=== PATIENT | male | born 1955 | race Caucasian/White ===

== ENCOUNTER 2019-02-02 08:16 | Emergency (ER) | payer BC ==
[~2019-02-02] VITALS: Ht 182.9 cm; Wt 99.3 kg
[~2019-02-02 08:16] MED LIST: ACTOS15 MG PO; FENOFIBRATE160 MG PO; GLIPIZIDE10 MG PO; GUAIATUSSIN AC118 ML PO; LOSARTAN-HCTZ1 EAC2 PO; METFORMIN HCL500 M1 PO; NAPROSYN500 MG PO
[2019-02-02] MEDS ORDERED: ATORVASTATIN CA40 MG PO (08:39)
== END 2019-02-02 11:25 | disposition short-term general hospital (02) ==
LOC: ED 08:16
DX: I72.3 Aneurysm of iliac artery (principal); I10 Essential (primary) hypertension; E11.9 Type 2 diabetes mellitus without complications; Z79.899 Other long term (current) drug therapy; Z79.84 Long term (current) use of oral hypoglycemic drugs
CPT/HCPCS: 74177; 80053; 81001; 85025; 99285-25; J1170; J1885; J2405; J2543; J7030; J7060; Q9967

== ENCOUNTER 2019-02-13 09:39 | Emergency (ER) | payer BC ==
[~2019-02-13] VITALS: Ht 182.9 cm; Wt 97.5 kg
[~2019-02-13 09:39] MED LIST changes: +ATORVASTATIN CA40 MG PO
--- OUTSIDE RECORDS SUMMARY | 2019-02-13 09:44 | XMS ---
PreManage Notification: CHRISTI VERA [facility] Worker Events No recent Security Events currently on file CRITERIA MET - [facility] - 2 Visits in 30 Days CARE PROVIDERS UGO RIVAS [facility] Current PHONE: Unknown Ugo Rivas Treatment Current [place] PHONE: Unknown Rafi has no Care Guidelines for this patient. Kush [facility] (12 MO.) [facility] [address] [place] [address] TOTAL 3 NOTE: Visits indicate total known visits. ED/UCC VISIT TRACKING (12 MO.) 02/13/2019 09:41 [facility] [place] TYPE: Emergency COMPLAINT: - BACK PAIN/NO INJURY [facility]2019 12[facility] DIAGNOSES: - Abdominal Pain - 63 yo male with leaking or mycotic L iliac aneurysm. Got ABX. Hemo dynamically stable. Let Dr. Brown know when arrives - Aneurysm of iliac artery - Referral 02/02/2019 08:16 [facility] [place] TYPE: Emergency COMPLAINT: - SIDE PAIN NON INJURY DIAGNOSES: - Aneurysm of iliac artery - [facility] (current) use of oral hypoglycemic drugs - Other exterminator helper (current) drug therapy - Essential (primary) hypertension - Type 2 diabetes mellitus without complications - Left lower quadrant pain INPATIENT VISIT TRACKING (12 MO.) 02/02/2019 12:36 [facility] DIAGNOSES: - Hyperkalemia - Aneurysm of iliac artery - Elevated white blood cell count, unspecified - Disorder of kidney and ureter, unspecified - Hypo-osmolality and hyponatremia [id number]
[2019-02-13] MEDS ORDERED: CLOPIDOGREL75 MG PO (10:04)
[2019-02-13] MEDS ORDERED: HUMALOG100 UNIT/2 SUB-Q (10:05)
[2019-02-13] MEDS ORDERED: LANTUS SOL100 UNIT/1 SUB-Q (10:06)
[2019-02-13] MEDS ORDERED: LOSARTAN POTAS100 MG PO (10:08)
[2019-02-13] MEDS ORDERED: CARVEDILOL12.5 MG PO (10:08)
[2019-02-13] MEDS ORDERED: AMLODIPINE BESYL5 MG PO (10:08)
[2019-02-13] MEDS ORDERED: METHOCARBAMOL500 MG PO (10:09)
[2019-02-13] MEDS ORDERED: CYCLOBENZAPRINE10 MG PO (13:23)
== END 2019-02-13 17:49 | disposition short-term general hospital (02) ==
LOC: ED 09:39
DX: N17.9 Acute kidney failure, unspecified (principal); N13.30 Unspecified hydronephrosis; D72.829 Elevated white blood cell count, unspecified; E11.9 Type 2 diabetes mellitus without complications; I10 Essential (primary) hypertension; Z88.1 Allergy status to other antibiotic agents; Z79.4 Long term (current) use of insulin; Z79.899 Other long term (current) drug therapy
CPT/HCPCS: 36415; 51702; 71045; 74176; 80048; 80053; 81001; 83605; 85025; 93971; 99284-25; J0692; J1815; J7030; J7060

== ENCOUNTER 2019-03-03 21:12 | Emergency (ER) | payer BC ==
[~2019-03-03] VITALS: Ht 182.9 cm; Wt 111.5 kg
[~2019-03-03 21:12] MED LIST changes: +AMLODIPINE BESYL5 MG PO; +CARVEDILOL12.5 MG PO; +CLOPIDOGREL75 MG PO; +CYCLOBENZAPRINE10 MG PO; +HUMALOG100 UNIT/2 SUB-Q; +LANTUS SOL100 UNIT/1 SUB-Q; +LOSARTAN POTAS100 MG PO; +METHOCARBAMOL500 MG PO
--- OUTSIDE RECORDS SUMMARY | 2019-03-03 21:14 | XMS ---
PreManage Notification: CHRISTI VERA Security Associate Professor Of Radiology Events No recent Security Events currently on file CRITERIA MET - [facility] - 2 Visits in 30 Days CARE PROVIDERS UGO RIVAS [facility] Current PHONE: Unknown Ugo Rivas Treatment Current [place] PHONE: Unknown Rafi has no Care Guidelines for this patient. Kush VISIT COUNT (12 MO.) [address] [facility] [address] [place] [address] TOTAL 4 NOTE: Visits indicate total known visits. ED/UCC VISIT TRACKING (12 MO.) 03/03/2019 21:12 [facility] [place] TYPE: Emergency COMPLAINT: - MEDICATION CONCERN 02/13/2019 09:41 [facility] [place] TYPE: Emergency DIAGNOSES: - Low back pain - Type 2 diabetes mellitus without complications - Allergy status to other antibiotic agents status - Unspecified hydronephrosis - Acute kidney failure, unspecified - [facility] (current) use of insulin - Essential (primary) hypertension - Elevated white blood cell count, unspecified - Other terminal worker (current) drug therapy 02/02/2019 12:36 [facility] [place] TYPE: Emergency DIAGNOSES: - Abdominal Pain - 63 yo male with leaking or mycotic L iliac aneurysm. Got ABX. Hemo dynamically stable. Let Dr. 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 Sepsis, unspecified organism 00367. Other secondary hypertension 49112. Chronic kidney disease, unspecified [address]9050. Aneurysm of iliac artery 99642. Type 2 diabetes mellitus with hyperglycemia 02/13/2019 19:30 [facility] [place] TYPE: General Medicine DIAGNOSES: - Hyponatremia - Sepsis, unspecified organism 02/02/2019 12:36 [facility] [place] TYPE: General Medicine DIAGNOSES: - Hyperkalemia - Aneurysm of iliac artery - Elevated white blood cell count, unspecified - Disorder of kidney and ureter, unspecified - Hypo-osmolality and hyponatremia [id number]
[2019-03-03] MEDS ORDERED: ASPIR 8181 MG PO (21:25)
[2019-03-03] MEDS ORDERED: DULCOLAX10 MG PR (21:28)
[2019-03-03] MEDS ORDERED: DAPTOMYCIN500 MG IV (21:39)
[2019-03-03] MEDS ORDERED: GLUCAGON HCL1 MG IV/IM (21:40)
[2019-03-03] MEDS ORDERED: GLUCOSE4 GM PO (21:41)
[2019-03-03] MEDS ORDERED: HEPARIN SO5000 UNIT3 INJ (21:42)
[2019-03-03] MEDS ORDERED: HYDRALAZIN20 MG/1 ML IV/IM (21:44)
[2019-03-03] MEDS ORDERED: HYDROCHLOROTH12.5 M1 PO (21:45)
[2019-03-03] MEDS ORDERED: DILAUDID1 MG/ML PO (21:46)
[2019-03-03] MEDS ORDERED: LABETALOL IV (21:48)
[2019-03-03] MEDS ORDERED: GLUCOPHAGE500 MG PO (21:49)
[2019-03-03] MEDS ORDERED: MIRALAX17 GM PO ×2 (21:51→21:52)
[2019-03-03] MEDS ORDERED: ROXICODONE15 MG PO (21:51)
[2019-03-03] MEDS ORDERED: PROCHLORPER5 MG/1 ML INJ (21:54)
[2019-03-03] MEDS ORDERED: SENOKOT8.6 MG PO (21:54)
[2019-03-03] MEDS ORDERED: FLOMAX0.4 MG PO (21:55)
[2019-03-04] MEDS ORDERED: GLUCOPHAGE500 MG PO (01:50)
[2019-03-04] MEDS ORDERED: ASPIR 8181 MG PO (01:50)
[2019-03-04] MEDS ORDERED: CARVEDILOL12.5 MG PO (01:50)
[2019-03-04] MEDS ORDERED: HYDROCHLOROTH12.5 M1 PO (01:50)
[2019-03-04] MEDS ORDERED: LOSARTAN POTAS100 MG PO (01:50)
[2019-03-04] MEDS ORDERED: AMLODIPINE BESYL5 MG PO (01:50)
[2019-03-04] MEDS ORDERED: ATORVASTATIN CA40 MG PO (01:50)
== END 2019-03-04 00:41 | disposition home or self-care (01) ==
LOC: ED 21:12
DX: T81.40XA Infection following a procedure, unspecified, initial encounter (principal); Z76.0 Encounter for issue of repeat prescription; E11.9 Type 2 diabetes mellitus without complications; I10 Essential (primary) hypertension; Z79.4 Long term (current) use of insulin; Z79.899 Other long term (current) drug therapy
CPT/HCPCS: 99282

== ENCOUNTER 2024-05-01 09:57 | Day surgery (SDC) | payer OTHER, MEDICARE ==
[~2024-05-01] VITALS: Ht 182.9 cm; Wt 96.3 kg
[~2024-05-01 09:57] MED LIST changes: +ASPIR 8181 MG PO; +CEFAZOLIN SODIUM 2 GM/20 ML SYR IV SCH; +DAPTOMYCIN500 MG IV; +DILAUDID1 MG/ML PO; +DULCOLAX10 MG PR; +FLOMAX0.4 MG PO; +FUROSEMIDE80 MG PO; +GLUCAGON HCL1 MG IV/IM; +GLUCOPHAGE500 MG PO; +GLUCOSE4 GM PO; +HEPARIN SO5000 UNIT3 INJ; +HYDRALAZIN20 MG/1 ML IV/IM; +HYDROCHLOROTH12.5 M1 PO; +HYDROmorphone HCL 1 MG/ML SYR IV PRN; +IBLOOD GLUCOSE TEST STRIP 1 EA TEST VI PRN; +LABETALOL IV; +LACTATED RINGER'S 1,000 ML IV SCH; +LIDOCAINE HCL 1% 5 ML SDV INJ ONE; +MIRALAX17 GM PO; +OXYCODONE/APAP 5/325 TAB PO PRN; +PROCHLORPER5 MG/1 ML INJ; +RENA-VITE TABL0.8 MG PO; +RENVELA800 MG PO; +ROXICODONE15 MG PO; +SEMGLEE (Y100 UNIT/2 SQ; +SENOKOT8.6 MG PO; +ondansetron HCL 4 MG/2 ML VIAL IV PRN
[2024-05-01 10:18] VITALS: BP 159/80
[2024-05-01 11:00] LABS: BASOPHILS 1.3 % (0-2); EOSINOPHILS 4.9 % (0-6); HEMATOCRIT 29.3 % (35.0-50.0); HEMOGLOBIN 9.8 g/dL (12.0-18.0); LYMPHOCYTES 19.4 % (24-44); MCH 33.8 (27-36); MCHC 33.5 g/dl (30-36); MCV 100.8 fl (81-99); MONOCYTES 17.3 % (0-12); NEUTROPHILS 57.1 % (39-80); PLATELET COUNT 139 K/uL (140-440); RBC 2.91 M/ul (4.3-5.7)
[2024-05-01 11:14] LABS: ALBUMIN 3.4 g/dL (3.4-5.0); ALBUMIN/GLOBULIN RATIO 0.94 (1.1-2.4); ANION GAP 10.3 (7-21); BILIRUBIN, TOTAL 0.8 ng/dL (0.2-1.0); BUN/CREATININE RATIO 6.95 (6.0-28.6); CALCIUM 8.4 mg/dL (8.5-10.1); CREATININE, SERUM 3.88 mg/dL (0.70-1.30); POTASSIUM 4.3 mmol/L (3.5-5.1)
[2024-05-01] MEDS ORDERED: fentaNYL citrate 100 MCG/2 ML VIAL ONE (12:02)
[2024-05-01] MEDS ORDERED: LIDOCAINE HCL 2% 5 ML SDV ONE (12:02)
[2024-05-01] MEDS ORDERED: propofoL 200 MG/20 ML VIAL ONE (12:02)
[2024-05-01] MEDS ORDERED: DEXAMETHASONE SOD PHOS 4 MG/ML VIAL ONE (12:02)
[2024-05-01] MEDS ORDERED: ondansetron HCL 4 MG/2 ML VIAL ONE (12:02)
[2024-05-01] MEDS ORDERED: BUPIVACAINE HCL 0.25% 50 ML MDV ONE (12:47)
[2024-05-01] MEDS ORDERED: ePHEDrine sulfate 50 MG/ML AMP ONE (13:38)
[2024-05-01] MEDS ORDERED: ACETAMINOPHEN 1,000 MG/100 ML VIAL ONE (13:40)
[2024-05-01 14:59] VITALS: BP 128/57
--- NOTE | 2024-05-01 15:01 | NUR ---
LE 8986 PATIENT INTO ROOM 2. REPORT RECIEVED FROM ALEJANDRO LEAL. PATIENT ALERT AND ORIENTED. BREATHING EQUAL AND UNLABORED. OXYGENT SATURATIONS ABOVE 90% ON ROOM AIR. SURGICAL DRESSING CLEAN, DRY AND INTACT. IVF INFUSING. SCD'S ON. PATIENT GIVEN 300 MLS OF WATER. CALL LIGHT WITHIN REACH. NO FUTHER NEEDS. NO QUESTIONS AT THIS TIME. PATIENT GIVEN PUDDING.
--- NOTE | 2024-05-01 15:39 | NUR ---
05/01/24 1539 Milagros Alfonso 1429- PT PRESENTS TO PACU, SEMI MEEKS POSITION, OPA REMOVED ON THE WAY THROUGH THE DOOR AND O2 REMOVED. PT REACTIVE TO STIMULUS. LR HANGING TO IV IN RW. ABD SOFT, NON DISTENDED. DRESSINGS IN PLACE WITH JOCK STRAP IN PLACE, CDI. ALL MONITORS IN PLACE. 1440- PT REPORTS SOME BURNING PAIN AND SURGICAL SITE, 5/10. TOLERABLE AT THIS TIME. DENIES NAUSEA. 1455- PT TAKEN BACK TO DAY SURGERY, DROWSY BUT AWAKE AND ANSWERING QUESTIONS. NO SIGNS OF DISTRESS. IV REMAINS IN PLACE. REPORT TO CARY ALLEN AT BEDSIDE, DRESSING ASSESSED TOGETHER.
[2024-05-01 16:15] VITALS: BP 150/72
--- NOTE | 2024-05-01 16:24 | NUR ---
LE 1533 DR. SEPULVEDA CALLED WITH AN UPDATE ON PATIENT. PATIENT UNABLE TO URINATE DUE TO PATIENT DIALYSIS. DR. SEPULVEDA CLEARED PATIENT TO LEAVE WITHOUT URINATING. PATIENT AND HIMSELF UNDERSTANDABLE TO CALL IF ANY CONCERNS. NO QUESTIONS AT THIS TIME. PATIENT HAS MET DISCHARGE CRITERIA IV D/C'D WNL. PATIENT GIVEN DISCHARGE INSTRUCTIONS. PATIENT WHEELED OUT OF FACILITY. NO FUTHER NEEDS.
== END 2024-05-01 16:13 | disposition home or self-care (01) ==
LOC: DS 09:57
PROVIDERS: Nurse Anesthetist, Certified Registered; ATTEND Urology
PROC: 0VB60ZZ Excision of Right Tunica Vaginalis, Open Approach (ICD-10-PCS; principal; 2024-05-01 12:20)
DX: N43.3 Hydrocele, unspecified (principal); E11.22 Type 2 diabetes mellitus with diabetic chronic kidney disease; I12.0 Hypertensive chronic kidney disease with stage 5 chronic kidney disease or end stage renal disease; N18.6 End stage renal disease; Z99.2 Dependence on renal dialysis; E11.51 Type 2 diabetes mellitus with diabetic peripheral angiopathy without gangrene; Z79.899 Other long term (current) drug therapy; Z88.8 Allergy status to other drugs, medicaments and biological substances
CPT/HCPCS: 36415; 80048; 80053; 85025; J0131; J0690; J1100; J2001; J2405; J2704; J3010; J7121

== ENCOUNTER 2025-02-01 01:52 | Emergency (ER) | payer MEDICARE, OTHER ==
[~2025-02-01] VITALS: Ht 182.9 cm; Wt 92.5 kg
[~2025-02-01 01:52] MED LIST changes: -CEFAZOLIN SODIUM 2 GM/20 ML SYR IV SCH; -HYDROmorphone HCL 1 MG/ML SYR IV PRN; -IBLOOD GLUCOSE TEST STRIP 1 EA TEST VI PRN; -LACTATED RINGER'S 1,000 ML IV SCH; -LIDOCAINE HCL 1% 5 ML SDV INJ ONE; -OXYCODONE/APAP 5/325 TAB PO PRN; -ondansetron HCL 4 MG/2 ML VIAL IV PRN
--- OUTSIDE RECORDS SUMMARY | 2025-02-01 01:55 | XMS ---
PreManage Notification: CHRISTI VERA Security Beautician Apprentice Events No recent Security Events currently on file CRITERIA MET - Group Notification CARE PROVIDERS FELTON VALLEJO Internal Medicine Current PHONE: Unknown Beata Baeza Physician Tutoring Manager Roxane LAIRD PHONE: [phone] Rafi has no Care Guidelines for this patient. Kush VISIT COUNT (12 MO.) [facility] TOTAL 2 NOTE: Visits indicate total known visits. ED/UCC VISIT TRACKING (12 MO.) 02/01/2025 01:53 [facility] [place] TYPE: Emergency COMPLAINT: - CHEST PAIN [facility]24 16[facility] DIAGNOSES: - Dialysis INPATIENT VISIT TRACKING (12 MO.) No inpatient visits to display in this time frame [id number]
[2025-02-01] MEDS ORDERED: LOSARTAN POTASS25 MG PO (02:04)
[2025-02-01 02:12] LABS: EOSINOPHILS 4.2 % (0-6); HEMATOCRIT 33.1 % (35.0-50.0); HEMOGLOBIN 11.2 g/dL (12.0-18.0); LYMPHOCYTES 10.8 % (24-44); MCH 33.4 (27-36); MCHC 33.9 g/dl (30-36); MCV 98.4 fl (81-99); MONOCYTES 11.8 % (0-12); NEUTROPHILS 72.2 % (39-80); PLATELET COUNT 175 K/uL (140-440); RBC 3.37 M/ul (4.3-5.7); RDW 16.5 (10.5-15.0)
[2025-02-01 02:21] LABS: INR 1.07 (0.80-1.30); PROTIME 13.2 Sec (11.2-14.2)
[2025-02-01 02:42] LABS: ALBUMIN 3.3 g/dL (3.4-5.0); ALBUMIN/GLOBULIN RATIO 0.94 (1.1-2.4); ANION GAP 12.4 (7-21); BILIRUBIN, TOTAL 0.4 mg/dL (0.2-1.0); BUN/CREATININE RATIO 8.67 (6.0-28.6); CREATININE, SERUM 4.84 mg/dL (0.70-1.30); MAGNESIUM 2.3 mg/dL (1.8-2.4); POTASSIUM 4.4 mmol/L (3.5-5.1); PROTEIN, TOTAL 6.8 g/dL (6.4-8.2)
[2025-02-01] MEDS ORDERED: MORPHINE SULFATE 4 MG/ML VIAL IV ONE (02:45)
[2025-02-01 02:47] LABS: CALCIUM 8.3 mg/dL (8.5-10.1)
[2025-02-01 03:25] VITALS: BP 138/65
--- NOTE | 2025-02-01 08:16 | EKG ---
[facility] [address] [facility] [place] [address] Signed Sinus rhythm with occasional premature ventricular complexes Left axis deviation Left ventricular hypertrophy with QRS widening and repolarization abnormality ( R in aVL , Dille product , Romhilt-Gar ) Abnormal ECG When compared with ECG of 27-APR-2024 07:20, premature ventricular complexes are now present T wave inversion less evident in Lateral leads Confirmed by Eliana Mora DO ([id number]) on 02/01/2025 8:16:19 AM Electronically Signed By: ELIANA MORA DO 02/01/25 0816 PATIENT NAME: CHRISTI VERA Electrocardiogram DATE OF : 51 PHYSICIAN: ELIANA MORA DO REPORT #: [id number] REPORT IS CONFIDENTIAL AND NOT TO BE RELEASED WITHOUT AUTHORIZATION
== END 2025-02-01 03:15 | disposition home or self-care (01) ==
LOC: ED 01:52
PROVIDERS: Family Medicine
DX: R07.89 Other chest pain (principal); E11.9 Type 2 diabetes mellitus without complications; I10 Essential (primary) hypertension; Z88.8 Allergy status to other drugs, medicaments and biological substances; Z79.4 Long term (current) use of insulin; Z79.899 Other long term (current) drug therapy
CPT/HCPCS: 36415; 71045; 80053; 83735; 83880; 84484; 85025; 85610; 93005; 93010; 99285-25

== ENCOUNTER 2025-08-24 09:56 | Emergency (ER) | payer MEDICARE, OTHER ==
[~2025-08-24] VITALS: Ht 182.9 cm; Wt 97.2 kg
[~2025-08-24 09:56] MED LIST changes: +LOSARTAN POTASS25 MG PO
--- OUTSIDE RECORDS SUMMARY | 2025-08-24 09:58 | XMS ---
PreManage Notification: CHRISTI VERA Security Chief Of Service Events No recent Security Events currently on file CRITERIA MET - Group Notification CARE PROVIDERS FELTON VALLEJO Internal Medicine Current PHONE: Unknown Beata Baeza Physician Personal Chef Roxane LAIRD PHONE: [phone] Rafi has no Care Guidelines for this patient. Kush VISIT COUNT (12 MO.) 2 [facility] TOTAL 3 NOTE: Visits indicate total known visits. ED/UCC VISIT TRACKING (12 MO.) 08/24/2025 09:57 [facility] [place] TYPE: Emergency COMPLAINT: - CHEST PAIN 02/01/2025 01:53 [facility] [place] TYPE: Emergency COMPLAINT: - CHEST PAIN DIAGNOSES: - Allergy status to other drugs, medicaments and biological substances - Chest pain, unspecified - Essential (primary) hypertension - medical terminologist (current) use of insulin - Other chest pain - Other medical terminologist (current) drug therapy - Type 2 diabetes mellitus without complications 09/29/2024 16:14 [facility] [place] TYPE: Emergency DIAGNOSES: - Dialysis INPATIENT VISIT TRACKING (12 MO.) No inpatient visits to display in this time frame [id number]
[2025-08-24] MEDS ORDERED: TYLENOL325 MG PO (10:14)
[2025-08-24] MEDS ORDERED: ANTACID168 MG (10:16)
[2025-08-24] MEDS ORDERED: CALCITRIOL0.25 MCG PO (10:17)
[2025-08-24] MEDS ORDERED: CLONIDINE HCL0.1 MG PO (10:17)
[2025-08-24] MEDS ORDERED: ALLERGY25 MG PO (10:18)
[2025-08-24] MEDS ORDERED: ANTI-DIARRHEAL2 MG (10:19)
[2025-08-24] MEDS ORDERED: MIRCERA30 MCG/0.3 (10:19)
[2025-08-24] MEDS ORDERED: NITROSTAT0.4 MG (10:20)
[2025-08-24] MEDS ORDERED: VENOFER50 MG/2.5 (10:21)
[2025-08-24] MEDS ORDERED: PLAVIX75 MG (10:21)
[2025-08-24] MEDS ORDERED: ONDANSETRON ODT8 MG (10:21)
[2025-08-24 10:37] LABS: BASOPHILS 0.4 % (0.2-1.2); EOSINOPHILS 0.9 % (0.8-7.0); LYMPHOCYTES 2.5 % (21.8-53.1); MCH 34.2 PG (25.7-32.2); MCHC 33.1 g/dL (32.3-36.5); MCV 103.2 fL (79.0-92.2); MONOCYTES 7.5 % (5.3-12.2); NEUTROPHILS 88.3 % (34.0-67.9); RBC 3.42 M/uL (4.63-6.08)
[2025-08-24 10:52] LABS: INR 1.11 (0.80-1.30); PROTIME 13.9 Sec (11.2-14.2)
[2025-08-24 11:00] LABS: CORONAVIRUS COVID-19 AG NEGATIVE (NEGATIVE)
[2025-08-24 11:01] LABS: ALT (SGPT) 31.0 U/L (14-59); AST (SGOT) 22.0 U/L (15-37); GLOMERULAR FILTRATION RATE,EST 17.0 mL/min (>60); PROTEIN, TOTAL 6.8 g/dL (6.4-8.2); UREA NITROGEN 25.0 mg/dL (7-18)
[2025-08-24] MEDS ORDERED: ACETAMINOPHEN 500 MG TAB PO ONE (12:00)
[2025-08-24] MEDS ORDERED: ZITHROMAX250 MG PO (13:35)
[2025-08-24] MEDS ORDERED: AMOX-CLAV 250-1 EACH PO (13:35)
[2025-08-24] MEDS ORDERED: AZITHROMYCIN 250 MG TAB PO ONE (13:45)
[2025-08-24] MEDS ORDERED: AMOXICILLIN/CLAVULANATE K 250 MG TAB PO ONE (13:45)
[2025-08-24 14:10] VITALS: BP 135/63
--- NOTE | 2025-08-25 21:16 | EKG ---
[facility] [address] [facility] [place] [address] Signed Normal sinus rhythm Left axis deviation Left ventricular hypertrophy ( Javier product , Romhilt-Gar ) ST \T\ T wave abnormality, consider lateral ischemia Abnormal ECG When compared with ECG of 01-FEB-2025 01:53, premature ventricular complexes are no longer present T wave inversion more evident in Lateral leads Confirmed by Julio Cesar Medrano MD () on 08/25/2025 9:16:35 PM Electronically Signed By: JULIO CESAR MEDRANO MD 08/25/256 PATIENT NAME: CHRISTI VERA Electrocardiogram DATE OF : 51 PHYSICIAN: JULIO CESAR MEDRANO MD REPORT #: [id number] REPORT IS CONFIDENTIAL AND NOT TO BE RELEASED WITHOUT AUTHORIZATION
--- NOTE | 2025-08-25 21:19 | EKG ---
[facility] [address] [facility] [place] [address] Signed Normal sinus rhythm Left axis deviation Left ventricular hypertrophy ( Javier product , Romhilt-Gar ) ST \T\ T wave abnormality, consider lateral ischemia Abnormal ECG When compared with ECG of 24-AUG-2025 10:07, No significant change was found Confirmed by Julio Cesar Medrano MD () on 08/25/2025 9:19:01 PM Electronically Signed By: JULIO CESAR MEDRANO MD 08/25/25 2119 PATIENT NAME: CHRISTI VERA Electrocardiogram DATE OF : 51 PHYSICIAN: JULIO CESAR MEDRANO MD REPORT #: [id number] REPORT IS CONFIDENTIAL AND NOT TO BE RELEASED WITHOUT AUTHORIZATION
== END 2025-08-24 14:13 | disposition home or self-care (01) ==
LOC: ED 09:56
PROVIDERS: Emergency Medicine
DX: J18.9 Pneumonia, unspecified organism (principal); R07.9 Chest pain, unspecified; E11.9 Type 2 diabetes mellitus without complications; I10 Essential (primary) hypertension; Z79.4 Long term (current) use of insulin; Z79.02 Long term (current) use of antithrombotics/antiplatelets; Z88.8 Allergy status to other drugs, medicaments and biological substances
CPT/HCPCS: 36415; 71045; 80053; 83880; 84484; 85025; 85610; 93005; 93010; 99285-25; A9270